=== PATIENT | male | born 1940 | race Caucasian/White ===

== ENCOUNTER 2017-12-13 11:07 | Day surgery (SDC) | payer MEDICARE ==
[~2017-12-13 11:07] MED LIST: Acetaminophen TAB* 325 MG PO PRN; Buffered Lidocaine 0.9% SYRIN* 5 ML/SYR SYRINGE INTRADERM ONE
[2017-12-13] MEDS ORDERED: Midazolam* 1 MG/ML 2 ML VIAL (2 MG) ONE ×2 (13:17→13:55)
[2017-12-13] MEDS ORDERED: fentaNYL* 50 MCG/ML 2 ML VIAL (100 MCG VIAL) ONE (13:17)
[2017-12-13] MEDS ORDERED: acetaZOLAMIDE TAB* 250 MG ONE (13:50)
[2017-12-13] MEDS ORDERED: Neomycin/Polymy/Dex OPTH.SUSP* MAXITROL 0.1% 5 ML ONE (13:50)
[2017-12-13] MEDS ORDERED: Proparacaine 0.5% OPHTH.SOL* 15 ML BTL ONE (13:50)
[2017-12-13] MEDS ORDERED: Phenylephrine 2.5% OPTH.SOL* 2 ML BTL ONE (13:50)
[2017-12-13] MEDS ORDERED: Povidone Iodine 5% OPTH* 30 ML BTL ONE (13:50)
[2017-12-13] MEDS ORDERED: Lidocaine 2% EPI 1:200000 MPF*10-20 ML VIAL ONE (13:50)
[2017-12-13] MEDS ORDERED: Lidocaine 1%* 5 ML VIAL ONE (13:50)
[2017-12-13] MEDS ORDERED: Cyclopentolate 1% OPTH.SOL* 2 ML BTL ONE (13:50)
[2017-12-13] MEDS ORDERED: Ketorolac 0.5% OPHTH (NF) 0.5 % 5 ML BTL ONE (13:50)
[2017-12-13 14:27] VITALS: BP 106/54
--- NOTE | 2017-12-13 15:40 | OP ---
DATE OF OPERATION: 12/13/2017. DATE OF : 1940. SURGEON: Rodriguez Robb M.D. PREOPERATIVE DIAGNOSIS: Cataract right eye. POSTOPERATIVE DIAGNOSIS: Cataract right eye. OPERATIVE PROCEDURE: Extracapsular cataract extraction with intraocular lens implant right eye. PROCEDURE: The patient was brought to the operating room after being given 1/2% Alcaine with epineph rine drops in the preoperative area. The eye was prepped and draped in the usual sterile fashion. S terile drape and eyelid speculum were placed. Again, topical 1/2% Alcaine with epinephrine was given . A paracentesis incision was made at the 9 o'clock position with the No.75 blade. Clear cornea inc ision 2.2 x 2.2-mm was created at the 12 o'clock position starting at the anterior limbus using the 2 .2-mm keratome. The anterior chamber was irrigated with 0.4 mL of 1% non-preservative intracameral l idocaine and filled with DisCoVisc. A capsulorrhexis was completed using the cystotome and the Utrat a forceps. Hydrodissection was performed with balanced salt solution. The lens nucleus was removed w ith the Phacoemulsification handpiece without incident. Cortex was removed with the irrigation-aspir ation handpiece. The capsular bag was re-inflated using DisCoVisc and an [id number] implant was inser bhumi with the shooter. The irrigation-aspiration handpiece was used to remove all residual DisCoVisc. The eye was refilled with balanced salt solution and the wound checked and found to be watertight. Topical Maxitrol drops were given. [id number]/[facility] #: [id number]
== END 2017-12-13 14:26 | disposition home or self-care (01) ==
LOC: OREAST 11:07
PROVIDERS: ATTEND Specialist
DX: H25.811 Combined forms of age-related cataract, right eye (principal); Z87.891 Personal history of nicotine dependence; I10 Essential (primary) hypertension; Z95.1 Presence of aortocoronary bypass graft; I25.119 Atherosclerotic heart disease of native coronary artery with unspecified angina pectoris; K21.9 Gastro-esophageal reflux disease without esophagitis; Z68.30 Body mass index [BMI] 30.0-30.9, adult
CPT/HCPCS: A9270-GY; J2250; J3010; V2632

== ENCOUNTER 2017-12-27 11:06 | Day surgery (SDC) | payer MEDICARE ==
[~2017-12-27 11:06] MED LIST changes: -Acetaminophen TAB* 325 MG PO PRN
[2017-12-27] MEDS ORDERED: Midazolam* 1 MG/ML 2 ML VIAL (2 MG) ONE ×2 (13:23→13:41)
[2017-12-27 14:05] VITALS: BP 125/69
[2017-12-27] MEDS ORDERED: Neomycin/Polymy/Dex OPTH.SUSP* MAXITROL 0.1% 5 ML ONE (15:02)
[2017-12-27] MEDS ORDERED: acetaZOLAMIDE TAB* 250 MG ONE (15:02)
[2017-12-27] MEDS ORDERED: Phenylephrine 2.5% OPTH.SOL* 2 ML BTL ONE (15:02)
[2017-12-27] MEDS ORDERED: Lidocaine 1%* 5 ML VIAL ONE (15:02)
[2017-12-27] MEDS ORDERED: Proparacaine 0.5% OPHTH.SOL* 15 ML BTL ONE (15:02)
[2017-12-27] MEDS ORDERED: Cyclopentolate 1% OPTH.SOL* 2 ML BTL ONE (15:02)
[2017-12-27] MEDS ORDERED: Lidocaine 2% EPI 1:200000 MPF*10-20 ML VIAL ONE (15:02)
[2017-12-27] MEDS ORDERED: Ketorolac 0.5% OPHTH (NF) 0.5 % 5 ML BTL ONE (15:02)
[2017-12-27] MEDS ORDERED: Povidone Iodine 5% OPTH* 30 ML BTL ONE (15:02)
--- NOTE | 2017-12-27 15:11 | OP ---
DATE OF OPERATION: 12/27/2017. DATE OF : 1940. SURGEON: Rodriguez Robb M.D. PREOPERATIVE DIAGNOSIS: Cataract left eye. POSTOPERATIVE DIAGNOSIS: Cataract left eye. OPERATIVE PROCEDURE: Extracapsular cataract extraction with intraocular lens implant left eye. PROCEDURE: The patient was brought to the operating room after being given 1/2% Alcaine with epineph rine drops in the preoperative area. The eye was prepped and draped in the usual sterile fashion. S terile drape and eyelid speculum were placed. Again, topical 1/2% Alcaine with epinephrine was given . A paracentesis incision was made at the 3 o'clock position with the No.75 blade. Clear cornea inc ision 2.2 x 2.2-mm was created at the 6 o'clock position starting at the anterior limbus using the 2. 2-mm keratome. The anterior chamber was irrigated with 0.4 mL of 1% non-preservative intracameral li docaine and filled with DisCoVisc. A capsulorrhexis was completed using the cystotome and the Utrata forceps. Hydrodissection was performed with balanced salt solution. The lens nucleus was removed wi th the Phacoemulsification handpiece without incident. Cortex was removed with the irrigation-aspira tion handpiece. The capsular bag was re-inflated using DisCoVisc and an [id number] 19.5 implant was inse rted with the shooter, oriented to the 69 degree meridian. Horizontal reference salmeron were made with the patient in the seated position in the preoperative area. The irrigation-aspiration handpiece wa s used to remove all residual DisCoVisc. The eye was refilled with balanced salt solution and the wo und checked and found to be watertight. Topical Maxitrol drops were given. [id number]/[facility] #: [id number]
== END 2017-12-27 14:09 | disposition home or self-care (01) ==
LOC: OREAST 11:06
PROVIDERS: ATTEND Specialist
DX: H25.812 Combined forms of age-related cataract, left eye (principal); I25.10 Atherosclerotic heart disease of native coronary artery without angina pectoris; I10 Essential (primary) hypertension; Z95.1 Presence of aortocoronary bypass graft; Z87.891 Personal history of nicotine dependence; K21.9 Gastro-esophageal reflux disease without esophagitis; Z68.30 Body mass index [BMI] 30.0-30.9, adult
CPT/HCPCS: A9270-GY; J2250; V2787

== ENCOUNTER 2019-03-28 11:05 | Observation (INO) | payer MEDICARE ==
--- NOTE | 2019-03-28 11:22 | ED ---
Neurological HPI - HPI Summary HPI Summary: Time seen by provider: 1115. The patient is a 78 y/o M presenting to [facility] by with a chief complaint of numbness in the left thigh noticed at 0630 this morning when he woke up. He reports that he initially woke up around [id number] to go to the bathroom and felt weakness in the left leg causing him to stumble. He went back to sleep but woke up around 0630 and noticed numbness in the left thigh, but the weakness has resolved, and he is able to ambulate well. He additionally c/o neck stiffness. He denies any numbness in the left upper extremity, slurred speech, or facial droop. Currently, his symptoms are rated 0/10 in severity. He has not had these symptoms before. PMHx: angina, CAD, HTN, CABG with 4 stents. Former smoker, occasional EtOH, no substance use. Medications reviewed, ASA taken today. Allergies noted. - History of Current Complaint Chief Complaint: EDNeurologicalDeficit Stated Complaint: LEFT LEG NUMBNESS PER PT Time Seen by Provider: 03/28/19 11:15 Hx Obtained From: Patient Onset/Duration: Sudden Onset, Started hours ago - numbness at 0630 when waking up, Still Present Timing: Constant Onset Severity: Mild Current Severity: Mild Neurological Deficit Location: LLE Pain Intensity: 0 Pain Scale Used: 0-10 Numeric Character: Numbness/Tingling - LLE Aggravating: Nothing Alleviating: Nothing Associated Signs and Symptoms: Positive: Weakness - in LLE, resolved, Numbness - LLE, Neck Pain/Stiffness. Negative: Impaired Speech TPA Considered: No - patient woke up with symptoms almost 5 hours ago Related Hx: ASA - Allergy/Home Medications Allergies/Adverse Reactions: Allergies Allergy/AdvReac Type Severity Reaction Status Date / Time No Known Allergies Allergy Verified 03/28/19 11:10 Home Medications: Home Medications Omeprazole 20 mg PO DAILY 03/28/19 [History Confirmed 03/28/19] PMH/Surg Hx/FS Hx/Imm Hx Endocrine/Hematology History: Denies: Hx Diabetes Cardiovascular History: Reports: Hx Angina, Hx Coronary Artery Disease, Hx Hypertension Denies: Hx Hypercholesterolemia, Hx Myocardial Infarction, Hx Pacemaker/ICD, Hx Valvular Heart Disease Respiratory History: Denies: Hx Asthma, Hx Chronic Obstructive Pulmonary Disease (COPD) Sensory History: Reports: Hx Cataracts - both, Hx Contacts or Glasses - glasses Denies: Hx Hearing Aid Opthamlomology History: Reports: Hx Cataracts - both, Hx Contacts or Glasses - glasses Psychiatric History: Denies: Hx Panic Disorder - Cancer History Hx Chemotherapy: No - Surgical History Surgical History: Yes Surgery Procedure, Year, and Place: appendectomy 1959, coronary bypass 05/02, cardiac stents placed 2012 and 2013 Hx Anesthesia Reactions: No Infectious Disease History: No Infectious Disease History: Denies: Traveled Outside the [place] in Last 30 Days - Family History Known Family History: Positive: Cardiac Disease, Hypertension - Social History Alcohol Use: Occasionally Hx Substance Use: No Substance Use Type: Reports: None Hx Tobacco Use: Yes Smoking Status (MU): Former Smoker Amount Used/How Often: smoked for 25 years Review of Systems Positive: Other - neck stiffness Neurological: Other - Negative: facial droop Positive: Weakness - left upper thigh, resolved, Numbness - in left upper thigh. Negative: Slurred Speech All Other Systems Reviewed And Are Negative: Yes Physical Exam - Summary Physical Exam Summary: VITAL SIGNS: Reviewed. GENERAL: Patient is a well-developed and nourished male who is lying comfortable in the stretcher. Patient is not in any acute respiratory distress. HEAD AND FACE: No signs of trauma. No ecchymosis, hematomas or skull depressions. No sinus tenderness. EYES: PERRLA, EOMI x 2, No injected conjunctiva, no nystagmus. EARS: Hearing grossly intact. Ear canals and tympanic membranes are within normal limits. MOUTH: Oropharynx within normal limits. NECK: Supple, trachea is midline, no adenopathy, no JVD, no carotid bruit, no c- spine tenderness, neck with full ROM. CHEST: Symmetric, no tenderness at palpation. LUNGS: Clear to auscultation bilaterally. No wheezing or crackles. CVS: Regular rate and rhythm, S1 and S2 present, no murmurs or gallops appreciated. ABDOMEN: Soft, non-tender. No signs of distention. No rebound, no guarding, and no masses palpated. Bowel sounds are normal. EXTREMITIES: FROM in all major joints, no edema, no cyanosis or clubbing. NEURO: Alert and oriented x 3. Decreased sensation in the left lower extremity, Ataxia in the left hand. Speech is normal and follows commands. NIH: 2 (see scale). SKIN: Dry and warm. GCS: 15. Triage Information Reviewed: Yes Vital Signs On Initial Exam: Initial Vitals Temp Pulse Resp BP Pulse Ox 97.3 F 83 16 157/70 97 03/28/19 11:07 03/28/19 11:07 03/28/19 11:07 03/28/19 11:07 03/28/19 11:07 Vital Signs Reviewed: Yes - Felecia Coma Scale Best Eye Response: 4 - Spontaneous Best Motor Response: 6 - Obeys Commands Best Verbal Response: 5 - Oriented Coma Scale Total: 15 Procedures - Sedation Patient Received Moderate/Deep Sedation with Procedure: No Diagnostics - Vital Signs Vital Signs Temp Pulse Resp BP Pulse Ox 03/28/19 11:07 97.3 F 83 16 157/70 97 - Laboratory Result Diagrams: 03/28/19 11:39 03/28/19 11:39 Lab Statement: Any lab studies that have been ordered have been reviewed, and results considered in the medical decision making process. - CT Brain CT CT Interpretation Completed By: Radiologist Summary of CT Findings: Impression: 1. No acute intracranial abnormality by CT ( MRI is more sensitive for acute infarct). 2. Mild chronic small vessel ischemic disease. 3. Mild cerebral volume loss. ED physician has reviewed this report. Head/Neck CTA CT Interpretation Completed By: Radiologist Summary of CT Findings: Impression: 1. Intracranial atherosclerotic disease with no acute occlusive disease, aneurysm or stenosis. 2. No acute occlusive disease in the neck. 3. Extensive calcified atherosclerotic plaque, as above, results in 50% stenosis of the distal right common carotid artery by NASCET criteria. 4. Multilevel spondylosis results in at least moderate spinal canal stenosis at C5-C6. 5. The heterogenous thyroid would BE better evaluated by ultrasound. ED physician has reviewed this report. - EKG 1129 Cardiac Rate: NL - 71 bpm EKG Rhythm: Sinus Rhythm EKG Comparison: No Significant Change - Similar to previous on 06/21/18. Summary of EKG Findings: EKG at 1129 reveals NSR at 71 bpm. T-wave inversion in III. No ST elevations. ED physician has reviewed and interpreted this EKG. NIH Scale - NIH Scale Level of Consciousness: Alert/Keenly Responsive Ask Patient the Month and His/Her Age: Both Correct Ask Pt to Open/Close Eyes and English Language Learner Tutor/Release Non-Paretic Hand: Both Correctly Best Gaze (Only Horizontal Eye Movement): Normal Visual Field Testing: No Visual Loss Facial Paresis-Pt to Smile & Close Eyes or Grimace Symmetry: Normal/Symmetrical Motor Function - Right Arm: No Drift-Holds 10 Seconds Motor Function - Left Arm: No Drift-Holds 10 Seconds Motor Function - Right Leg: No Drift-Holds 10 Seconds Motor Function - Left Leg: No Drift-Holds 10 Seconds Limb Ataxia-Must be out of Proportion to Weakness Present: Present in One Limb Sensory (Use Pinprick to Test Arms/Legs/Trunk/Face): Pinprick Less on Affected Best Language (Describe Picture, Name Items): No Aphasia Dysarthria (Read Several Words): Normal Extinction and Inattention: No Abnormality Total Score: 2 Re-Evaluation - Re-Evaluation First Eval Re-Evaluation Time: 13:40 Change: Unchanged Comment: We discussed all results and plan for admission following Dr. Lucio' s recommendation. Course/Dx - Course Assessment/Plan: Patient is a 78 y/o M with a chief complaint of waking up with weakness in the left lower extremity between 8487-6292 this morning and then numbness in the same leg at 0630 when he woke up again, but the weakness resolved. He additionally notes neck stiffness. He denies any slurred speech, facial droop, or numbness or weakness in the left upper extremity. Blood work without any significant abnormality except for hemoglobin of 13.6, hematocrit of 41, platelet count of 144, amd glucose of 127. Head CT IMPRESSION: 1. No acute intracranial abnormality by CT (MRI is more sensitive for acute infarct). 2. Mild chronic small vessel ischemic disease. 3. Mild cerebral volume loss. CTA IMPRESSION: 1. Intracranial atherosclerotic disease with no acute occlusive disease, aneurysm or stenosis. 2. No acute occlusive disease in the neck. 3. Extensive calcified atherosclerotic plaque, as above, results in 50% stenosis of the distal right common carotid artery by NASCET criteria. 4. Multilevel spondylosis results in at least moderate spinal canal stenosis at C5- C6. 5. The heterogeneous thyroid would BE better evaluated by ultrasound. I discussed my physical exam findings with Dr. Lucio from neurology who recommends for the patient to be admitted for workup for CVA versus TIA. I discussed my physical exam and findings with Dr. Bejarano from the hospital services who accepted the patient for admission. The patient is hemodynamically stable alert oriented 3. - Diagnoses Provider Diagnoses: TIA (transient ischemic attack) - Physician Notifications Discussed Care Of Patient With: Keshawn Lucio - neurology Time Discussed With Above Provider: 13:30 Instructed by Provider To: Other - I discussed my physical exam and findings thus far with Dr. Lucio, and he recommends Head CTA with admission if results are negative and transfer if results are positive. I reported the CTA findings to Dr. Lucio, who suggests admission. I discussed the case and Dr. Lucio's recommendation with Dr. Bejarano, hospitalist, and she accepts the patient for admission. Discharge ED - Sign-Out/Discharge Documenting (check all that apply): Patient Departure - Patient is accepted for admission by Dr. Bejarano. - Discharge Plan Condition: Stable Disposition: ADMITTED TO [facility] Referrals: Joe Lopez MD [Primary Care Provider] - - Billing Disposition and Condition Condition: STABLE Disposition: Admitted to [facility] - Attestation Statements Document Initiated by Donnie: Yes Documenting Scribe: Nimo Gonzalez Provider For Whom Donnie is Documenting (Include Credential): Dr. Chin Martino MD Scribe Attestation: I, Nimo Gonzalez, scribed for Dr. Chin Martino MD on 03/28/19 at 1632. Scribe Documentation Reviewed: Yes Provider Attestation: The documentation as recorded by the Nimo handley accurately reflects the service I personally performed and the decisions made by me, Dr. Chin Martino MD Status of Scribe Document: Ready
[2019-03-28 11:48] LABS: ABS Basophils 0.1 10^3/ul (0-0.2); ABS Eosinophils 0.2 10^3/ul (0-0.6); ABS Lymphocytes 1.2 10^3/ul (1.0-4.8); ABS Monocytes 0.7 10^3/ul (0-0.8); ABS Neutrophils 3.8 10^3/ul (1.5-7.7); Hematocrit 41 % (42-52); Hemoglobin 13.6 g/dL (14.0-18.0); Lymphocyte % 20.6 %; Mean Corpuscular HGB Conc 34 g/dL (31-36); Mean Corpuscular Hemoglobin 31 pg (27-31); Mean Corpuscular Volume 92 fL (80-94); Mean Platelet Volume 8.3 fL (7.4-10.4); Nucleated Red Blood Cells % 0.1; Platelet Count 144 10^3/uL (150-450); Red Blood Count 4.43 10^6 /uL (4.18-5.48); Red Cell Distribution Width 14 % (10-15); White Blood Count 6.1 10^3/uL (3.5-10.8)
[2019-03-28 12:06] LABS: ALT 12 U/L (7-52); AST 17 U/L (13-39); Albumin 3.9 g/dL (3.2-5.2); Albumin/Globulin Ratio 1.5 (1-3); Alkaline Phosphatase 55 U/L (34-104); Anion Gap 5 mmol/L (2-11); BUN/Creatinine Ratio 16.8 (8-20); Blood Urea Nitrogen 17 mg/dL (6-24); CO2 Carbon Dioxide 25 mmol/L (22-32); Calcium 8.7 mg/dL (8.6-10.3); Chloride 110 mmol/L (101-111); Cholesterol 113 mg/dL; EGFR African American 86.2 (>60); EGFR Non-African American 71.3 (>60); Globulin 2.6 g/dL (2-4); Glucose 127 mg/dL (70-100); HDL Cholesterol 58.6 mg/dL; LDL Cholesterol 39 mg/dL; Potassium 4.2 mmol/L (3.5-5.0); Sodium 140 mmol/L (135-145); Total Protein 6.5 g/dL (6.4-8.9); Triglycerides 76 mg/dL
[2019-03-28 12:18] LABS: Alcohol < 10 mg/dL (<10)
[2019-03-28 12:19] LABS: Activated Partial Thrombo Time 32.5 seconds (26.0-38.0); INR 1.01 (0.82-1.09)
[2019-03-28] MEDS ORDERED: Iohexol 350* (CONTRAST) 500 ML MDV IV ONE (15:15)
[2019-03-28] MEDS ORDERED: Aspirin 81 mg CHEW TAB* 81 MG TAB.CHEW PO ONE (16:20)
[2019-03-28] MEDS ORDERED: Clopidogrel TAB* 75 MG PO ONE (16:29)
[2019-03-28 17:36] LABS: Urine Appearance Clear; Urine Bacteria Absent (Absent); Urine Bilirubin Negative (Negative); Urine Blood 1+ (Negative); Urine Color Straw; Urine Glucose Negative (Negative); Urine Ketones Negative (Negative); Urine Nitrite Negative (Negative); Urine Protein Negative (Negative); Urine Red Blood Cell Absent (Absent); Urine Specific Gravity 1.004 (1.010-1.030); Urine Urobilinogen Negative (Negative); Urine White Blood Cell Absent (Absent)
[2019-03-28 17:50] LABS: Urine Benzodiazepine Screen None Detected (None Detect); Urine Opiates Screen None Detected (None Detect)
[2019-03-28] MEDS ORDERED: Acetaminophen TAB* 325 MG PO PRN (18:32)
[2019-03-28] MEDS ORDERED: Ondansetron INJ* 2 MG/ML VIAL IV PRN (18:32)
[2019-03-28 19:57] LABS: Erythrocyte Sed Rate 8 mm/Hr (0-19)
--- NOTE | 2019-03-28 20:23 | HP ---
ADMISSION HISTORY AND PHYSICAL: DATE OF ADMISSION: 03/28/19 PRIMARY CARE PROVIDER: Dr. Lopez. PROVIDER: Tra Gallego NP ATTENDING PHYSICIAN: Dr. Almazan.* (DICTATED BY TRA GALLEGO NP) OTHER PROVIDERS: Include Dr. Lucio. CHIEF COMPLAINT: Left leg weakness and numbness. HISTORY OF PRESENT ILLNESS: This is a 78-year-old male with a past medical history significant for CAD, hypertension with triple bypass in the past, who presented to the emergency room today with left leg weakness and numbness. Between 2 and 3 o'clock this morning, the patient woke up to go to the bathroom and felt weakness in his left leg and stumbled in the bathroom, did not think anything else of it, went back to bed, woke up at 6:30 at which time his left top of his thigh felt numb as if he had fallen asleep and was still weak. The patient went back to bed, woke up again around 10:30 with weakness had resolved , but numbness is still persistent. Two days ago, stated he was using a pickaxe and though you know at that time the patient said he is aware of by the mechanics, he did not have any neck or back fatigue at that time. He said he had never experienced any symptoms like this previously. In the emergency room , the patient has been hypertensive in the 160s to 170s systolically, though asymptomatic, has received CT and CTA of the head, EKG and brain MRI. Dr. Lucio was contacted. Currently, the patient is sitting up in the stretcher. Denies any left leg weakness or numbness, though states that when he rubs his hand over his left thigh, it feels very sensitive almost like a sunburn. No other symptoms noted. PAST MEDICAL HISTORY: Significant for coronary artery disease, hypertension, GERD, and cataracts. PAST SURGICAL HISTORY: Bilateral cataract extraction with lens implant. He had a triple CABG in 2013, angioplasty x3 stents in 2012, angioplasty in 2013 and then later in 2013 had another angioplasty with 1 stent. He has also had an appendectomy and a cholecystectomy. HOME MEDICATIONS: Include: 1. Omeprazole 20 mg p.o. daily. 2. Amlodipine 2.5 mg p.o. b.i.d. 3. Atorvastatin 20 mg p.o. q.1700. 4. Baby aspirin 81 mg p.o. q.a.m. 5. Carvedilol 25 mg p.o. b.i.d. 6. Metamucil 1 tablespoon p.o. t.i.d. ALLERGIES: No known drug allergies. FAMILY HISTORY: Father had hypertension. Mother had stroke and coronary artery bypass graft. SOCIAL HISTORY: He is a former smoker, quit in 1988, at that time had been a couple pack a day smoker. Drinks about a 2 to 3 fingers of bourbon a day. No other recreational substance use. 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 He is , has 2 children. REVIEW OF SYSTEMS: An 11-point system review was completed, it was positive for tingling to the left thigh. Negative for headaches, recent fevers, or infections. Negative for injury to the back or the head. Denies any cough, shortness of breath, palpitations, abdominal pain, nausea, vomiting, diarrhea. PHYSICAL EXAMINATION APPEARANCE: This is a well-groomed, well-developed, older gentleman seen sitting up in stretcher, no acute distress noted. VITAL SIGNS: Blood pressure 172/80, heart rate 65, temperature is 97.6 degrees Fahrenheit, respirations 18, O2 sats 96% on room air. HEENT: Eyes: Conjunctivae pink and moist. Pupils equal, round, reactive and accommodating to light. Extraocular muscles intact. No partial gaze paralysis noted. Visual agosto in all 4 quadrants are within normal limits. ENT: Oropharynx clear. Mucous membranes moist. LYMPHATICS: No cervical lymphadenopathy noted. RESPIRATORY: Lung sounds clear throughout bilaterally on room air. No accessory muscle use. CARDIAC: S1, S2 present. Heart rate regular. No gallops, murmurs, or rubs appreciated. No lower extremity edema. +2 positive pedal pulses. ABDOMEN: Soft, nontender, nondistended. Positive bowel sounds x4. MUSCULOSKELETAL: No clubbing or cyanosis. No abnormalities. Full range of motion. 5/5 strength in bilateral upper and lower extremities. NEUROLOGIC: Smile is symmetrical. Tongue midline. No focal deficits appreciated. Sensation intact to light touch except for top of left thigh, which he reported sort of a burning tingly sensation to light touch. PSYCHIATRIC: Alert and oriented x3. No anxiety or depression noted. SKIN: No rashes or open areas appreciated. DIAGNOSTIC STUDIES/LAB DATA: Pertinent lab data: Hemoglobin 13.6, hematocrit 41, platelet count 144. Glucose was 127, lactic acid 0.1. Urine was clean. Urine drug toxicology negative. Diagnostic images: Brain CT showed no acute intracranial abnormality, though did show mild chronic small vessel ischemic disease and mild cerebral volume loss. Head CTA showed intracranial atherosclerotic disease with no acute occlusive disease, aneurysm or stenosis. No occlusive disease in the neck. Extensive calcified atherosclerotic plaque as above resulting in 50% stenosis at the distal right carotid artery. Multilevel spondylosis resulting in at least moderate spinal canal stenosis at C5-C6. Brain MRI showed no acute intracranial abnormalities, mild chronic small vessel ischemic disease, likely mild cerebral volume loss. EKG showed sinus rhythm with first-degree block. IMPRESSION: My impression is that this is a 78-year-old male with a past medical history significant for coronary artery disease and hypertension, who is admitted to [facility] [place] [place] on 03/28/19, cerebrovascular accident has been ruled out. Admitting diagnosis is paresthesia of skin to the left leg. PLAN OF CARE: 1. Left leg weakness, rule out CVA. Admit OBV. Consult to Dr. Lucio placed. Regular diet with assist. Transthoracic echocardiogram and add Plavix to his normal regimen. 2. GERD. Continue omeprazole. 3. Coronary artery disease. Continue Lipitor and baby aspirin. 4. Hypertension. Continue amlodipine. 5. History of diarrhea. The patient stated diarrhea has resolved within the past month as long as he takes his Metamucil, so continue Metamucil t.i.d. as per home regimen. 6. Code status: He is full code. 7. DVT prophylaxis: SCDs and heparin. 8. Disposition: To OBV to the medical floor. Plan has been discussed with my attending and they agreed with the plan. TRA GALLEGO, TELEPHONE ORDER CLERK [id number]/[facility] #: [id number] GAURI
[2019-03-28] MEDS: Carvedilol TAB* 25 MG PO SCH (22:46)
[2019-03-28] MEDS: Heparin VIAL(*) 5000 UNITS/ML VIAL (FIVE THOUSAND) SUBCUT SCH (22:46)
[2019-03-28] MEDS: amLODIPine TAB* 5 MG PO SCH (22:47)
[2019-03-29 06:21] LABS: ABS Basophils 0.1 10^3/ul (0-0.2); ABS Eosinophils 0.2 10^3/ul (0-0.6); ABS Lymphocytes 1.7 10^3/ul (1.0-4.8); ABS Monocytes 0.8 10^3/ul (0-0.8); ABS Neutrophils 3.3 10^3/ul (1.5-7.7); Eosinophil % 3.5 %; Hematocrit 41 % (42-52); Hemoglobin 13.9 g/dL (14.0-18.0); Lymphocyte % 28.1 %; Mean Corpuscular HGB Conc 34 g/dL (31-36); Mean Corpuscular Hemoglobin 31 pg (27-31); Mean Corpuscular Volume 90 fL (80-94); Mean Platelet Volume 8.8 fL (7.4-10.4); Platelet Count 145 10^3/uL (150-450); Red Blood Count 4.51 10^6 /uL (4.18-5.48); Red Cell Distribution Width 14 % (10-15); White Blood Count 6.1 10^3/uL (3.5-10.8)
[2019-03-29] MEDS: Heparin VIAL(*) 5000 UNITS/ML VIAL (FIVE THOUSAND) SUBCUT SCH (08:28)
[2019-03-29] MEDS: Carvedilol TAB* 25 MG PO SCH (08:28)
[2019-03-29] MEDS: amLODIPine TAB* 5 MG PO SCH (08:29)
[2019-03-29] MEDS ORDERED: Aspirin EC TAB* 81 MG TAB.EC PO SCH (09:00)
[2019-03-29] MEDS ORDERED: Clopidogrel TAB* 75 MG PO SCH (09:00)
[2019-03-29] MEDS ORDERED: Pantoprazole TAB * 40 MG TAB PO SCH (09:00)
[2019-03-29 11:45] VITALS: BP 120/47
--- NOTE | 2019-03-29 14:14 | ECHO ---
*[facility]* [place] [address] Fax #: [phone] Transthoracic Echocardiogram Patient: Nikolas Mathis : 1940 Study Date: 03/29/2019 Age: 78 Gender: M HR: 73 bpm Height: 70 in /177.8 cm BSA: 2.15 m^2 Weight: 214.6 lb /97.5 kg BMI: 30.8 kg/m^2 *Rail Splitter: Citlalli Del Valle [facility] *Referring Physician: * Carol Gallego *Reading Physician: * James Lott MD Indications: Neurologic defecit. History: Coronary artery disease. Risk factors: Former tobacco use. Hypertension. Labs, prior tests, procedures, and surgery: Catheterization. There was a stenosis which was treated with a stent. Coronary artery bypass grafting. Conclusions Summary: - Left ventricle: The cavity size is normal. Wall thickness is at the upper limits of normal with mild to moderate thickening of basal septum. Systolic function is normal. The estimated ejection fraction is 60-65%. Doppler parameters are consistent with abnormal left ventricular relaxation (grade 1 diastolic dysfunction). - Ventricular septum: Postoperative hypokinesis of the interventricular septum is observed. - Mitral valve: There is trace regurgitation. - Aortic valve: The annulus is mildly calcified, focal area between NCC and right coronary cusp. The valve is trileaflet. The leaflets are normal thickness. Study data: Transthoracic echocardiogram. Procedure: Transthoracic echocardiography was performed. Image quality was fair. Complete 2D, spectral Doppler, and color flow Doppler. Location: Bedside. Patient status: Observation. Patient room number: 442-01. The previous study was not available, so comparison is made to the report of June 2018. Similar except that the mitral regurgitation was graded mild last time and prolaps was reported last time. No mitral valve prolapse seen today. Rhythm: Normal sinus rhythm. Findings Left ventricle: The cavity size is normal. Wall thickness is at the upper limits of normal with mild to moderate thickening of basal septum. Systolic function is normal. The estimated ejection fraction is 60-65%. Wall motion is normal; there are no regional wall motion abnormalities. Doppler parameters are consistent with abnormal left ventricular relaxation (grade 1 diastolic dysfunction). Right ventricle: The cavity size is normal. Systolic function is normal. Ventricular septum: Postoperative hypokinesis of the interventricular septum is observed. Left atrium: The atrium is normal in size. Right atrium: The atrium is normal in size. Mitral valve: The Mitral valve annulus appears calcified. The leaflets are mildly thickened. Mild focal thickening, with involvement of chords. There is no evidence of stenosis. There is trace regurgitation. Aortic valve: The annulus is mildly calcified, focal area between NCC and right coronary cusp. The valve is trileaflet. The leaflets are normal thickness. There is no evidence of stenosis. There is no significant regurgitation. Tricuspid valve: The leaflets are normal thickness. There is no evidence of stenosis. There is trace regurgitation. Pulmonic valve: The leaflets are normal thickness. There is no evidence of stenosis. There is no significant regurgitation. Aorta: The aortic root appears normal. The aortic arch appears normal. Pericardium: There is no significant pericardial effusion. Pulmonary arteries: Not well visualized. Systolic pressure can not be accurately estimated. Systemic veins: Inferior vena cava: The vessel is normal in size. There is (>= 50%) respiratory change in the IVC dimension. Measurements Left ventricle Value Ref Right atrium continued Value Ref ANGELES, LAX 5.2 cm 4.2 - 5.8 ML dim, ES, A4C 4.3 cm 2.6 - 4.4 ESD, LAX 4.0 cm 2.5 - 4.0 Estimated RAP 8 mm Hg --------- FS, LAX (L) 23 % 25 - 43 PW, ED, LAX 1.0 cm 0.6 - 1.0 Aortic valve Value Ref EF (L) 46 % 52 - 72 Kiya diam, ED 2.3 cm --------- E', lat kiya, TDI 10.9 cm/sec >=10.0 Peak v, S 1.03 m/sec -- ------- E/e', lat kiya, 6 VTI, S 19.8 cm ----- ---- TDI Mean grad, S 2.0 mm Hg --------- E', med kiya, TDI 7.2 cm/sec >=7.0 Peak grad, S 4.0 mm Hg -- ------- E/e', med kiya, 9 LVOT/AV, VTI ratio 0.78 ----- ---- TDI E', avg, TDI 9.1 cm/sec Mitral valve Value Ref E/e', avg, TDI 7 <=14 Peak E 0.64 m/sec -- ------- Peak A 0.77 m/sec --------- LVOT Value Ref Decel time 153 ms --------- Peak south, S 0.75 m/sec Peak E/A ratio 0.8 --------- VTI, S 15.5 cm Mean grad, S 1 mm Hg Pulmonic valve Value Ref Peak v, S 0.69 m/sec --------- Ventricular septum Value Ref Peak grad, S 2.0 mm Hg --------- IVS, ED (H) 1.4 cm 0.6 - 1.0 Aortic root Value Ref Right ventricle Value Ref Root diam 3.3 cm <4.3 ANGELES, LAX 2.9 cm ANGELES minor ax, 3.4 cm 1.9 - 3.5 Ascending aorta Value Ref A4C mid AAo AP diam, S 2.7 cm --------- Left atrium Value Ref Aortic arch Value Ref AP dim, ES (H) 4.70 cm 3.00 - Arch diam 2.5 cm --------- 4.00 ML dim, A4C 4.2 cm Inferior vena cava Value Ref SI dim, A4C 5.0 cm Diam 0.9 cm --------- Vol/bsa, ES, A/L 27 ml/m^2 16 - 34 Right atrium Value Ref SI dim, ES 4.4 cm 3.4 - 5.3 Legend: (L) and (H) chel values outside specified reference range. Prepared and electronically signed by James Lott MD 03/29/2019 14:13
--- NOTE | 2019-03-29 15:58 | CONS ---
CONSULTATION REPORT: DATE OF CONSULT: 03/29/19 PATIENT OF: Carol Gallego NP and Dr. Lopez. HISTORY OF PRESENT ILLNESS: This is a 78-year-old man who I am asked to evaluate for left leg weakness and numbness. At 2 or 3 o'clock this morning, he woke to go to the bathroom and he felt weakness as if his left knee would buckle. He did not collapse. There was no weakness that he noticed of his foot neither plantarflexion nor dorsiflexion, but he did stumble. He had some numbness in his leg. When he woke back up 4-1/2 hours later, his left thigh felt numb down including his knee area. He presented later to the emergency room with persistent numbness. He has had no back pain the past few days, but has been using a pickaxe a few times this past week. PAST MEDICAL HISTORY: He has a history of hypertension, GERD, cataracts, and coronary artery disease. PAST SURGICAL HISTORY: Status post a triple bypass in 2013, angioplasty with 3 stents in 2012 and 2013. He is status post appendectomy and cholecystectomy and he has had bilateral cataract extractions. MEDICATIONS AT HOME: Include: 1. Metamucil 1 tablespoon t.i.d. 2. Carvedilol 25 mg b.i.d. 3. Aspirin 81 mg q.a.m. 4. Atorvastatin 20 mg a day. 5. Amlodipine 2.5 daily. 6. Omeprazole 20 mg daily. ALLERGIES: He has no known drug allergies. FAMILY HISTORY: Father has hypertension. Mom had a stroke and coronary artery bypass. SOCIAL HISTORY: He is a former smoker, quit in 1988 and had been a couple pack a day smoker prior to that. He drinks 2 to 3 fingers of bourbon a day. He does not have drug abuse. He is , with 2 children. REVIEW OF SYSTEMS: He is negative in all 14 spheres other than the HPI. PHYSICAL EXAM: Temperature 97.9, pulse 60, respirations 16, blood pressure 120/ 47. He is alert and oriented with normal speech and comprehension. Cranial nerves II through XII were intact. Fundi were benign. Motor exam revealed normal tone, strength, coordination, and gait. Romberg was negative. There was no weakness in his left leg. He had no numbness to touch throughout. His symptoms are completely gone at this point. Reflexes were 1+ and equal with downgoing toes. Chest: Clear. Cardiovascular: Regular rate and rhythm. Abdomen is soft. DIAGNOSTIC STUDIES/LAB DATA: I reviewed his MRI scan, which showed some scattered small degree of white matter disease with some mild atrophy. He had a CTA, which showed no significant stenosis or occlusions. Of note, his CTA did show moderate spinal canal stenosis at C5-6 and acquired osseous fusion at C5- 6. His echo showed no source of clot. His LDL was below 70. IMPRESSION AND PLAN: I discussed with Nikolas that his left leg numbness and weakness was in a pattern more suggestive of a peripheral nerve injury rather than a stroke and numbness in his thigh going to and including his knee would not be typical to be seen in stroke, likewise his weakness was just apparently in his quadriceps as best as I can tell from the history and this too would not be a presentation of a stroke, more likely either an L3-4 disk disease or possibly either femoral neuropathy or sciatica. He did not have any clear pain , but I think one of these things was most likely going and he is symptom-free now, so we do not need to pursue these diagnoses, but if it should recur, then I will be glad to see again and consider doing MRI scans and possible EMG depending on the clinical situation. The other thing we discussed was that if he had similar numbness and weakness that was acute in 1 or 2 extremities, he needs to get to the hospital sooner because otherwise there would be a delay in treating a stroke acutely and I discussed the possible consequences of that. He also had on his CTA evidence of some moderate central stenosis in his neck, but he has no symptoms of that currently. Thank you for sharing his case. [id number]/[facility] #: [id number] GAURI
[2019-03-29] MEDS ORDERED: Atorvastatin* 20 MG TAB PO SCH (18:00)
--- NOTE | 2019-03-29 21:28 | DS ---
AMENDED REPORT NOW INCLUDES DESIGNATED COSIGNER CC: Dr. Lopez * DISCHARGE SUMMARY: DATE OF ADMISSION: 03/28/19 DATE OF DISCHARGE: 03/29/19 PROVIDER: Tra Gallego NP. ATTENDING PHYSICIAN: Dr. Maldonado.* (DICTATED BY TRA GALLEGO NP) PRIMARY CARE PHYSICIAN: Dr. Lopez. CONSULTING PHYSICIAN: Dr. Lucio. PRIMARY DIAGNOSES: 1. Lumbar radiculopathy. 2. Cerebrovascular accident ruled out. SECONDARY DIAGNOSES: 1. Gastroesophageal reflux disease. 2. Coronary artery disease. 3. Hypertension. PROCEDURES: None. STUDIES: Transthoracic echocardiogram on 03/28/19 showed no ejection fraction of 60% to 65% with a grade 1 diastolic dysfunction. Aortic valve and the annulus was mildly calcified, though no significant regurgitation. Mitral valve annulus also appears calcified with mild focal thickening. Head CTA showed intracranial atherosclerotic disease with no acute occlusive disease, aneurysm, or stenosis. No acute occlusive disease in the neck. Extensive calcified atherosclerotic plaque as above resulting in 50% stenosis of the distal right common carotid artery. Multiple level spondyloses resulting in at least moderate spinal canal stenosis at C5-C6. Brain MRI showed no acute intracranial abnormalities, also confirmed mild chronic small-vessel ischemic disease and mild cerebral volume loss. EKG showed sinus rhythm with first-degree heart block. PERTINENT LABS: H and H of 13.9 and 41. HISTORY OF PRESENT ILLNESS/HOSPITAL COURSE: This is a 78-year-old male with a past medical history that was significant for hypertension and hyperlipidemia, who had a triple bypass in the past, who presented to the emergency room on 04/06 for left leg weakness and numbness that started between 2 and 3 o'clock in the morning. The patient at that time had fallen back asleep and woken up again at 6:30 and 10:30 with the same complaints. In the emergency room, the patient had undergone brain CT, CTA, and brain MRI, all negative for any evidence of CVA. During his time in the emergency room, the weakness in his leg had resolved, though had remaining tingling to the left anterior thigh. The patient was then admitted for observation and also underwent an echocardiogram. All symptoms have resolved at this time. The patient has also revealed the fact that 3 days ago he had been out working in the yard using a pickaxe for 3 days straight, working on moving stone, and reseeding a plot of land. He stated that he is aware of body mechanics and had been lifting with his legs, not his back, and never at anytime had felt any back strain. Dr. Lucio had been consulted during the course of the admission and also agreed that there was lack of any evidence of CVA. Due to the pattern of the pain, it was felt that the patient had had lumbar radiculopathy. REVIEW OF SYSTEMS: An 11-point system review was performed. It was negative for any chest pain, shortness of breath, unilateral numbness or weakness, headaches, or difficulty with gait imbalance. PHYSICAL EXAMINATION: Vital Signs: Temperature 97.9 Fahrenheit, 60 pulse, 16 respirations, 98% oxygen on room air, and 120/47 blood pressure. Constitutional : This is a well-groomed, well-developed gentleman, seen sitting up in bed, in no acute distress. HEENT: Eyes: Conjunctivae pink and moist. Pupils equal, round, reactive, and accommodating to light. Extraocular muscles intact. Oropharynx clear. Mucous membranes moist. Lymphatics: No cervical lymphadenopathy noted. Respiratory: Lung sounds clear throughout bilaterally on room air. No accessory muscle use noted. Cardiac: S1, S2 present. Heart rate regular. No murmurs, gallops, or rubs appreciated. No lower extremity edema, 2+ positive pedal pulses. Abdomen: Soft, nontender, nondistended. Positive bowel sounds x4. Musculoskeletal: No clubbing or cyanosis. No abnormalities. Full range of motion. 5/5 strength in bilateral upper and lower extremities. Neurological: Smile is symmetrical. Tongue midline. No focal deficits appreciated. Sensation intact to light touch. Psychiatric: Alert and oriented x3. No anxiety or depression noted. Skin: No rashes or open areas appreciated. DISCHARGE PLAN: The patient may go home with a regular diet. Activity is as tolerated. Recommended to wear a back brace if he has to do any sort of heavier lifting than recommended and if somebody else were able to help him finish up his project at home that will be preferable. Return precautions: The patient is to return to the hospital if he experiences any increase in numbness, tingling, or weakness in one or both of his legs, particularly if he has any saddle anesthesia or if he notices any slurring of his speech or facial drooping. Plan for each condition: 1. Lumbar radiculopathy. The patient is to follow up with his primary care provider within the week. May use Tylenol as needed. 2. GERD. Continue with the omeprazole. 3. Coronary artery disease. Continue baby aspirin due to calcifications noted on imaging and increase Lipitor from 20 to 40 mg a day. 4. Hypertension. Continue amlodipine. 5. Code status. Is full code. CONTINUED HOME MEDICATIONS: The patient is to continue: 1. Amlodipine 2.5 mg p.o. b.i.d. 2. Aspirin 81 mg p.o. q.a.m. 3. Carvedilol 25 mg p.o. b.i.d. 4. Pantoprazole 40 mg p.o. daily. 5. Atorvastatin 40 mg p.o. q. 1700. CONDITION UPON DISCHARGE: Stable. DISPOSITION: To home. TIME SPENT: Time spent on this patient is about 30 minutes. TRA GALLEGO, COIL REWIND MACHINE OPERATOR [id number]/[facility] #: [id number] MTDD
== END 2019-03-29 16:04 | disposition home or self-care (01) ==
LOC: ED 11:05 → MED 20:08 → MEDTELE 03-29 08:22
PROVIDERS: ADMIT Internal Medicine; ATTEND Internal Medicine
DX: M54.16 Radiculopathy, lumbar region (principal); K21.9 Gastro-esophageal reflux disease without esophagitis; I25.10 Atherosclerotic heart disease of native coronary artery without angina pectoris; I10 Essential (primary) hypertension; Z79.82 Long term (current) use of aspirin; Z79.899 Other long term (current) drug therapy; R53.83 Other fatigue; Z87.891 Personal history of nicotine dependence; Z95.5 Presence of coronary angioplasty implant and graft
CPT/HCPCS: 36415; 70450; 70496; 70498; 70551; 80053; 80061; 80307; 80320; 81003; 81015; 83605; 84484; 85025; 85610; 85652; 85730; 86850; 86900; 86901; 93005; 93306; 96372; 99284; A9270-GY; G0378; G0480; J1644; Q9967

== ENCOUNTER 2019-05-07 09:04 | Emergency (ER) | payer MEDICARE ==
--- NOTE | 2019-05-07 09:22 | ED ---
Abdominal Pain/Male - HPI Summary HPI Summary: Patient is a 78-year-old male who presents to the emergency department for epigastric abdominal pain that woke him from sleep. Patient states since being in the ER his pain has resolved and is feeling back to baseline. Patient states he's been having issues with epigastric pain over the last several months to one year. He saw GI earlier in the ER and had an endoscopy and colonoscopy performed by Dr. Lagunas. Currently taking omeprazole. Patient denies chest pain, shortness of breath, fever, cough. Patient's notes that over the past few days epigastric pain has been worse and patient has been feeling nauseous, decreased appetite and sleeping more. Past medical history of CAD, hypertension, hyperlipidemia. Patient states pain felt like his typical abdominal pain but was worse is why he presented for evaluation. Symptoms are moderate in severity. Currently no modifying factors. - History of Current Complaint Chief Complaint: EDChestPainROMI Stated Complaint: ABD PAIN PER PT Time Seen by Provider: 05/07/19 09:20 Hx Obtained From: Patient Pain Intensity: 0 - Allergies/Home Medications Allergies/Adverse Reactions: Allergies Allergy/AdvReac Type Severity Reaction Status Date / Time No Known Allergies Allergy Verified 05/07/19 09:19 Home Medications: Home Medications Omeprazole 20 mg PO DAILY 05/07/19 [History Confirmed 05/07/19] PMH/Surg Hx/FS Hx/Imm Hx Previously Healthy: Yes Endocrine/Hematology History: Denies: Hx Diabetes Cardiovascular History: Reports: Hx Angina, Hx Coronary Artery Disease, Hx Hypertension Denies: Hx Hypercholesterolemia, Hx Myocardial Infarction, Hx Pacemaker/ICD, Hx Valvular Heart Disease Respiratory History: Denies: Hx Asthma, Hx Chronic Obstructive Pulmonary Disease (COPD) Sensory History: Reports: Hx Cataracts - both, Hx Contacts or Glasses - reading glasses Denies: Hx Hearing Aid Opthamlomology History: Reports: Hx Cataracts - both, Hx Contacts or Glasses - reading glasses Psychiatric History: Denies: Hx Panic Disorder - Cancer History Hx Chemotherapy: No - Surgical History Surgery Procedure, Year, and Place: appendectomy 1959, coronary bypass 05/02, cardiac stents placed 2012 and 2013, bilat cataracts Hx Anesthesia Reactions: No Infectious Disease History: No Infectious Disease History: Denies: Traveled Outside the [place] in Last 30 Days - Family History Known Family History: Positive: Cardiac Disease, Hypertension - Social History Occupation: Retired Lives: With Family Alcohol Use: Occasionally Hx Substance Use: No Substance Use Type: Reports: None Hx Tobacco Use: Yes Smoking Status (MU): Former Smoker Amount Used/How Often: smoked for 25 years Review of Systems Constitutional: Negative Negative: Fever Cardiovascular: Negative Negative: Palpitations, Chest Pain Respiratory: Negative Negative: Shortness Of Breath, Cough Positive: Abdominal Pain, Diarrhea, Nausea. Negative: Vomiting Genitourinary: Negative Musculoskeletal: Negative Skin: Negative Neurological: Negative All Other Systems Reviewed And Are Negative: Yes Physical Exam Triage Information Reviewed: Yes Vital Signs On Initial Exam: Initial Vitals Temp Pulse Resp BP Pulse Ox 96.9 F 67 18 155/78 97 05/07/19 09:11 05/07/19 09:11 05/07/19 09:11 05/07/19 09:11 05/07/19 09:11 Vital Signs Reviewed: Yes Appearance: Positive: Well-Appearing - Pt. sitting up in bed in NAD. Pleasant. present. Skin: Positive: Warm, Dry Head/Face: Positive: Normal Head/Face Inspection Eyes: Positive: Normal, EOMI Neck: Positive: Supple Respiratory/Lung Sounds: Positive: Clear to Auscultation, Breath Sounds Present Cardiovascular: Positive: Normal, RRR Abdomen Description: Positive: Nontender, Soft. Negative: Guarding, Pulsatile Mass Neurological: Positive: Normal, CN Intact II-III Psychiatric: Positive: Affect/Mood Appropriate Procedures - Sedation Patient Received Moderate/Deep Sedation with Procedure: No Diagnostics - Vital Signs Vital Signs Temp Pulse Resp BP Pulse Ox 05/07/19 09:11 96.9 F 67 18 155/78 97 - Laboratory Result Diagrams: 05/07/19 09:57 05/07/19 09:56 Lab Statement: Any lab studies that have been ordered have been reviewed, and results considered in the medical decision making process. Abdominal Pain Male Course/Dx - Course Course Of Treatment: Patient presenting after an episode of epigastric pain. He is currently pain-free and feels at baseline. He is afebrile with stable vital signs. EKG done at 0910 shows a sinus rhythm of 66bpm, normal axis, no ST elevation or depression, unchanged from prior tracing. Labs are unremarkable other than mildly elevated lipase of 169. Hx of cholecysectomy. Admits to rare ETOH use. Case discussed with pt.'s GI physician, Dr. Lagunas, who recommends CT scan for further evaluation. He feels pt. can likely go home if pain has improved and f.u outpt. CT scan per radiology is negative for acute findings. Pt. given a liter of NSS. Results discussed with pt. and . Discussed admission vs dc home. Pt. would prefer to be dc home since he has zero pain and is tolerating PO fluids. Will dc home to f.u with pcp in 1-2 days for recheck and repeat lipase. Advised to increase fluids and clear liquid diet. Pt. has apt with GI in 2 weeks. Pt. will return to er for increased pain, fever, vomiting, or if concerned. Pt. and understand and agree with plan. - Diagnoses Differential Diagnosis/HQI/PQRI: ACS, AMI, Gall Bladder Disease, Pancreatitis, Peptic Ulcer Disease, Pneumonia, Renal Colic Provider Diagnoses: Epigastric pain, Pancreatitis Discharge ED - Sign-Out/Discharge Documenting (check all that apply): Patient Departure - Discharge Plan Condition: Improved Disposition: HOME Patient Education Materials: Pancreatitis (ED), Epigastric Pain (ED) Referrals: Esau Lagunas DO [Doctor of Osteopathy] - Joe Lopez MD [Primary Care Provider] - Additional Instructions: Call your PCP tomorrow for recheck in 1-2 day and for repeat lipase level Clear liquid diet x 24-48 hours Increase fluids Avoid alcohol Return to ER for increased pain, fever, vomiting, or if concerned - Billing Disposition and Condition Condition: IMPROVED Disposition: Home - Attestation Statements Provider Attestation: I was available for consult. This patient was seen by the [facility]. The patient was not presented to, seen by, or examined by me. Balbir Shea MD
--- OUTSIDE RECORDS SUMMARY | 2019-05-07 09:50 | XMS REPORT | Continuity of Care Document ---
:1940 External Reference #:[id number] Author Name Dom Sampson Care Team Providers Name Role Phone Joe Lopez M.D. 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 Onset: 03/20/2013 Gastroesophageal reflux disease Tammy Soriano M.D. Onset: 03/20/2013 Benign essential hypertension Tammy Soriano M.D. Onset: 03/20/2013 Obesity Tammy Soriano M.D. Onset: 03/20/2013 FH: Cardiovascular disease Tammy Soriano M.D. Onset: 03/20/2013 Abnormal results of cardiovascular function Tammy Soriano M.D. Onset: 2012 studies Coronary arteriosclerosis Tammy Soriano M.D. Onset: 03/29/2013 Mixed hyperlipidemia Tammy Soriano M.D. Onset: 03/29/2013 Peripheral vascular disease Tammy Soriano M.D. Onset: 03/29/2013 Difficulty breathing Tammy Soriano M.D. Onset: 04/29/2013 Carotid artery occlusion Tammy Soriano M.D. Onset: 04/29/2013 Angina pectoris Tammy Soriano M.D. Onset: 07/01/2013 Dizziness and giddiness Tammy Soriano M.D. Onset: 08/06/2013 Pure hypercholesterolemia Tammy Soriano M.D. 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 Atherosclerotic heart disease of [place] ECHO Schedule Onset: 2014 coronary artery without angina pectoris Essential hypertension [place] ECHO Schedule Onset: 04/03/2015 Social History Type Date Description Comments Sex Unknown Tobacco Use Start: Unknown not smoking ETOH Use Currently consumes drinks 1-2 drinks alcohol daily Tobacco Use Start: Unknown End: Patient is a former smoked for 29 years Unknown smoker and quit in 1988 Recreational Drug Use Never Used Drugs Smoking Status Reviewed: 12/11/18 Patient is a former smoked for 29 years smoker and quit in 1988 Exercise Type/Frequency Exercises regularly walking around house Exercise Type/Frequency Exercises regularly works out at fitness center twice a week Allergies, Adverse Reactions, Alerts Active Allergies Reaction Severity Comments Date Lisinopril cough 07/01/2013 Diovan cough 07/01/2013 Enalapril cough 07/01/2013 Benicar tired 07/01/2013 Inactive Allergies NKDA 03/20/2013 Medications Active Medications SIG Qnty Indications Ordering Provider Date Amlodipine Besylate 1 by mouth twice 180tabs James Peck 04/17/2017 a day Vlad Lott 2.5mg Tablets Carvedilol 1 tab by mouth 180tabs James Kasia 06/04/2015 25mg Tablets twice a day Vlad Lott Atorvastatin Calcium take 1 tablet at 90tabs James F. 03/29/2013 bedtime Vlad Lott 20mg Tablets Aspirin po qd Unknown 81mg Tablets DR Omeprazole 1 by mouth twice Unknown 20mg daily Capsules DR Medications Administered in Office Medication SIG Qnty Indications Ordering Provider Date Inj, Regadenoson, 0.1 MG Prasanth Mcrae M.D. 05/02/2014 Injection Technetium TC 99M TetrofosminPrasanth M.D. 05/02/2014 Per Unit Dose Up To 40 Millicuries Injection Inj, Regadenoson, 0.1 MG Prasanth Mcrae M.D. 12/19/2013 Injection Technetium TC 99M TetrofosminPrasanth M.D. 12/19/2013 Per Unit Dose Up To 40 Millicuries Injection Technetium TC 99M Tetrofosmin, Tammy Soriano M.D. 04/16/2013 Per Unit Dose Up To 40 Millicuries Injection Immunizations Description No Information Available Vital Signs Date Vital Result Comment 12/11/2018 2:22pm Height 70 inches 5'10" Weight 219.50 lb with shoes Heart Rate 72 /min BP Systolic Sitting 138 mmHg BP Diastolic Sitting 62 mmHg BP Systolic Standing 128 mmHg BP Diastolic Standing 60 mmHg BP Systolic Lying Down 131 mmHg la sitting BP Diastolic Lying Down 52 mmHg la sitting BMI (Body Mass Index) 31.5 kg/m2 Ejection Fraction 60-65% Echocardiogram 07/16/2018 05/15/2018 2:39pm Height 70 inches 5'10" Weight 216.56 lb no shoes Heart Rate 84 /min radial, regular BP Systolic Sitting 130 mmHg left arm, essentially regular BP Diastolic Sitting 65 mmHg left arm, essentially regular BMI (Body Mass Index) 31.1 kg/m2 Ejection Fraction 55-60% echo 04/03/15 Results Description No Information Available Procedures Date Code Description Status 03/29/2019 04748 ECHO Transthorasic Realtime 2D W Doppler & Color Flow Hosp Completed 12/11/2018 21879 EKG Tracing & Interpretation Completed Medical Devices Description No Information Available Encounters Type Date Location Provider Dx Diagnosis Office Visit 03/29/2019 [facility] Carol Hair, M54.16 Radiculopathy, 2:50p Assoc,[facility] [employer] lumbar region Hospitalists Office Visit 03/28/2019 [facility] Carol Hair, R53.1 Weakness 2:50p Assoc,pc [facility] Office Visit 12/11/2018 [facility] James Peck E78.00 Pure 2:40p Vlad Lott hypercholesterolem ia, unspecified I25.10 Athscl heart disease of [place] coronary artery w/o ang pctrs I10 Essential (primary) hypertension I44.0 Atrioventricular block, first degree I73.9 Peripheral vascular disease, unspecified Assessments Date Code Description Provider 03/29/2019 R20.8 Other disturbances of skin sensation James Lott M.D. 03/29/2019 M54.16 Radiculopathy, lumbar region Carol Hair, JAKE 03/29/2019 I25.10 Atherosclerotic heart disease of [place] James Lott M.D. coronary artery with 03/28/2019 R53.1 Weakness Carol Hair, JAKE 12/11/2018 E78.00 Pure hypercholesterolemia, unspecified James F. Mauser , M.D. 12/11/2018 I25.10 Atherosclerotic heart disease of [place] James Lott M.D. coronary artery with 12/11/2018 I10 Essential (primary) hypertension James Lott M.D. 12/11/2018 I44.0 Atrioventricular block, first degree James Lott M.D. 12/11/2018 I73.9 Peripheral vascular disease James Lott M.D. Plan of Treatment Future Appointment(s):05/14/2019 1:00 pm - [facility]12/11/2018 - James Lott M.D.E78.00 Pure hypercholesterolemia , ulqykxwacwnZ15.10 Atherosclerotic heart disease of [place] coronary artery withNew Orders:Stress Test, Exercise Nuclear, Ordered: 12/11/18I10 Essential ( primary) fcuotyckxiqjO99.0 Atrioventricular block, first uzvfetC80.9 Peripheral vascular diseaseFollow up:ov 8 m Functional Status Description No Information Available Mental Status Description No Information Available Referrals Description No Information Available
[2019-05-07 10:06] LABS: ABS Basophils 0.1 10^3/ul (0-0.2); ABS Eosinophils 0.2 10^3/ul (0-0.6); ABS Monocytes 0.8 10^3/ul (0-0.8); ABS Neutrophils 6.2 10^3/ul (1.5-7.7); Eosinophil % 2.1 %; Hematocrit 40 % (42-52); Lymphocyte % 12.2 %; Mean Corpuscular HGB Conc 35 g/dL (31-36); Mean Corpuscular Hemoglobin 31 pg (27-31); Mean Corpuscular Volume 89 fL (80-94); Mean Platelet Volume 8.5 fL (7.4-10.4); Nucleated Red Blood Cells % 0.2; Platelet Count 133 10^3/uL (150-450); Red Blood Count 4.53 10^6 /uL (4.18-5.48); Red Cell Distribution Width 14 % (10-15); White Blood Count 8.2 10^3/uL (3.5-10.8)
[2019-05-07 10:12] LABS: INR 1.09 (0.82-1.09)
[2019-05-07 10:37] LABS: Albumin/Globulin Ratio 1.4 (1-3); BUN/Creatinine Ratio 15.9 (8-20); C Reactive Protein 1.15 mg/L (<8.01); Calcium 8.6 mg/dL (8.6-10.3); EGFR African American 101.1 (>60); EGFR Non-African American 83.5 (>60); Globulin 2.9 g/dL (2-4); Potassium 3.7 mmol/L (3.5-5.0); Total Bilirubin 0.9 mg/dL (0.2-1.0); Total Protein 6.9 g/dL (6.4-8.9)
[2019-05-07] MEDS ORDERED: NS 0.9% 1000 ML** 1,000 ML IV ONE (10:41)
[2019-05-07] MEDS ORDERED: Iohexol 300* (CONTRAST) 10 ML SDV IV ONE (11:43)
[2019-05-07 14:19] VITALS: BP 00/00
== END 2019-05-07 14:17 | disposition home or self-care (01) ==
LOC: ED 09:04
DX: K85.90 Acute pancreatitis without necrosis or infection, unspecified (principal); I25.10 Atherosclerotic heart disease of native coronary artery without angina pectoris; I10 Essential (primary) hypertension; Z87.891 Personal history of nicotine dependence; Z79.899 Other long term (current) drug therapy; Z90.49 Acquired absence of other specified parts of digestive tract; N28.1 Cyst of kidney, acquired; I70.0 Atherosclerosis of aorta
CPT/HCPCS: 36415; 71045; 74177; 80053; 83605; 83690; 84484; 85025; 85610; 86140; 93005; 96360; 96361; 99284; Q9967